=== PATIENT | female | born 1955 | race Caucasian/White ===

== ENCOUNTER 2021-12-22 12:24 | Emergency (ER) | payer MEDICARE, OTHER ==
[2021-12-22 13:07] LABS: CHLORIDE,CL 104 mmol/L (98-107); SODIUM,NA 143 mmol/L (136-145)
[2021-12-22 13:08] LABS: ANION GAP 21.1 mmol/L (5-15)
[2021-12-22 13:10] LABS: PTT,PARTIAL THROMBOPLSTIN TIME 37.4 SEC (20.5-30.9)
[2021-12-22] MEDS ORDERED: Atropine 0.1 MG/ML 10 ML Syringe ONE (13:25)
[2021-12-22] MEDS ORDERED: EPINEPHrine 1:10,000 1 MG/10 ML Syringe ONE (13:25)
== END 2021-12-22 12:37 | disposition expired ==
LOC: VM.ED 12:24
DX: I46.9 Cardiac arrest, cause unspecified (principal); Z88.8 Allergy status to other drugs, medicaments and biological substances
CPT/HCPCS: 36415; 80048; 84484; 85025; 85379; 85610; 85730; 92950; 93010; 96374; 96375; 99284; 99285-25